=== PATIENT | male | born 1985 | race Caucasian/White ===

== ENCOUNTER 2022-04-27 18:50 | Emergency (ER) | payer BC, SELFPAY ==
[2022-04-27] VITALS (8 sets, daily range): BP systolic 140–153; BP diastolic 84–99; PULSE 77–92; RESP 16–18; TEMP 37; O2SAT 93–100; BMI 33.5
[2022-04-27 21:13] LABS: Hemoglobin* 16.3 gm/dL (13.5-17.5)
[2022-04-27 21:16] LABS: Chloride* 107 mmol/L (96-114); Potassium* 3.9 mmol/L (3.6-5.1); Sodium* 140 mmol/L (135-149)
[2022-04-27 21:19] LABS: Blood Urea Nitrogen* 16 mg/dL (5-24); Calcium* 9.5 mg/dL (8.4-10.6); Carbon Dioxide* 26 mmol/L (20-32); Est. Creatinine Clearance* 121.76; Estimated Glomerular Filt Rate 98 ml/min; Glucose* 103 mg/dL (60-115); Magnesium* 2.2 mg/dL (1.5-2.6)
[2022-04-27 21:28] LABS: NT Pro B Type NatriureticPept* < 20 pg/mL
--- NOTE | 2022-04-28 07:20 | ED_ITS ---
HPI - Chest Pain General Chief Complaint: Chest Pain Stated Complaint: Irregular heart beat and chest pain Time Seen by Provider: 04/27/22 20:04 History of Present Illness HPI narrative: 37-year-old man here with significant other with concern of heart skipping beats and some heavy beats. Just feels like things are not right. Admittedly has been going on and off for some years but seems more noticeable or frequent over the last week and especially this last day; lasting momentarily as often as every 5 minutes. He has had episodes where lying down at the end of the day feels more of the symptoms, more fluttering? perhaps. Does work road construction. He feels like he's been subtly more short of breath lately. Admittedly may not keep up with hydration. He does experience more of these feelings generally later in the day. Over the course of the day had a few sharp pains as well and so is more concerned about his heart. He does endorse that his anxiety is elevated. Concerned also about blood pressure as meaasured here. No family history of arrhythmia/dysrhythmia, sudden cardiac , no hypertrophic cardiomyopathy. No alcohol. Does not consume excessive stimulants. No fever. No cough or cold symptoms. No pleuritic pain. Does smoke. Does not feel these sympoms under heavier exertion. Related Data Home Medications Medication Instructions Recorded Confirmed No Known Home Medications 04/27/22 04/27/22 Allergies Allergy/AdvReac Type Severity Reaction Status Date / Time No Known Drug Allergies Allergy Verified 04/27/22 19:04 Review of Systems Status of ROS Reports: 10 or more systems reviewed and unremarkable except as noted in History and below PFSH PFS Social History Smoking Status: Current every day smoker What tobacco products do you use: cigarettes Smoking packs per day: 0.5 Smoking cigarettes per day: 10.0 Do you use any of these nicotine containing products: None Second hand tobacco smoke exposure: No How often do you have a drink containing alcohol: monthly or less How many standard drinks containing alcohol do you have on a typical day: 1 or 2 How often do you have six or more drinks on one occasion: Never AUDIT-C Alcohol total score: 1 Non-prescribed substance use: denies use service: No Exam Narrative Exam Narrative: Pleasant man of large stature. NAD. Generally calm but appears subtly anxious. Speaking in steady controlled fluid manner. Breathing easily. Skin warm and dry without rash. Extensive tattooing of viking/nordic/runes. CN 2 through 12 look to be intact. Heavily bearded. Lungs are clear. Heart with regular rate and rhythm. No murmur rub or gallop. Abdomen soft. Well-muscled. Moving all extremities without difficulty. Well-perfused. No lower extremity edema. Const Vital Signs, click to edit/add: Vital Signs - 24 hr 04/27/22 19:00 04/27/22 19:46 04/27/22 19:46 Temperature 98.6 F Pulse Rate 84 Pulse Rate [Right Pulse Oximeter] 85 87 Respiratory Rate 18 18 Blood Pressure Blood Pressure [Right Upper Arm] 152/92 H 146/92 H Pulse Oximetry 97 96 94 Oxygen Delivery Method Room Air Room Air 04/27/22 20:00 04/27/22 20:02 04/27/22 20:30 Temperature Pulse Rate 92 81 77 Pulse Rate [Right Pulse Oximeter] Respiratory Rate Blood Pressure 153/99 H Blood Pressure [Right Upper Arm] Pulse Oximetry 93 94 96 Oxygen Delivery Method 04/27/22 20:32 04/27/22 22:04 04/27/22 22:27 Temperature 98.6 F Pulse Rate 79 Pulse Rate [Right Pulse Oximeter] 78 78 Respiratory Rate 16 16 Blood Pressure 144/84 H Blood Pressure [Right Upper Arm] 140/95 H 140/95 H Pulse Oximetry 94 100 Oxygen Delivery Method Room Air Course Vital Signs Vital signs: Initial Vital Signs Temperature 98.6 F 04/27/22 19:00 Temperature Source Temporal Artery Scan 04/27/22 19:00 Pulse Rate 85 04/27/22 19:00 Respiratory Rate 18 04/27/22 19:00 Blood Pressure 152/92 H 04/27/22 19:00 Blood Pressure Mean 112 04/27/22 19:00 Blood Pressure Position Sitting 04/27/22 19:00 Pulse Oximetry 97 04/27/22 19:00 Oxygen Delivery Method 04/27/22 19:00 Vital Signs Temperature 98.6 F 04/27/22 19:00 Pulse Rate 85 04/27/22 19:00 Respiratory Rate 18 04/27/22 19:00 Blood Pressure 152/92 H 04/27/22 19:00 Pulse Oximetry 97 04/27/22 19:00 Oxygen Delivery Method 04/27/22 19:00 Temperature 98.6 F 04/27/22 22:27 Pulse Rate 78 04/27/22 22:27 Respiratory Rate 16 04/27/22 22:27 Blood Pressure 140/95 H 04/27/22 22:27 Pulse Oximetry 100 04/27/22 22:04 Oxygen Delivery Method 04/27/22 22:04 MDM - Chest Pain MDM Narrative Medical decision making narrative: During initial evaluation I do see PACs on monitor; not clearly symptomatic with these. Perhaps dehydration is contributing to some cellular irritability. May have some underlying arrhythmia. Monitored in the emergency department without further event. Did give IV hydration and checked chemistries. Cardiac labs and chemistries were reassuring. Due to concern particularly about more lengthy events around bedtime, perhaps there is more that might be captured on longer monitoring and so have arranged for Holter monitor to be placed as well. I had also discussed just following up outpatient. I do think anxiety has perpetuated or possibly precipitated some of the symptoms as well. Lab Data Attestation: I reviewed the patient's lab results. Labs: Lab Results 04/27/22 04/27/22 04/27/22 Range/Units 19:41 19:41 19:41 Hgb 16.3 (13.5-17.5) gm/dL Sodium 140 (135-149) mmol/L Potassium 3.9 (3.6-5.1) mmol/L Chloride 107 (96-114) mmol/L Carbon Dioxide 26 (20-32) mmol/L BUN 16 (5-24) mg/dL Creatinine 1.0 (0.5-1.5) mg/dL Estimated Creat Clear 121.76 Estimated GFR 98 ml/min Glucose 103 (60-115) mg/dL Calcium 9.5 (8.4-10.6) mg/dL Magnesium 2.2 (1.5-2.6) mg/dL NT-Pro-B Natriuret Pep < 20 pg/mL TSH (0.270-4.20) uIU/mL POC Troponin I (0.01-0.04) ng/ml 04/27/22 04/27/22 Range/Units 19:41 21:51 Hgb (13.5-17.5) gm/dL Sodium (135-149) mmol/L Potassium (3.6-5.1) mmol/L Chloride (96-114) mmol/L Carbon Dioxide (20-32) mmol/L BUN (5-24) mg/dL Creatinine (0.5-1.5) mg/dL Estimated Creat Clear Estimated GFR ml/min Glucose (60-115) mg/dL Calcium (8.4-10.6) mg/dL Magnesium (1.5-2.6) mg/dL NT-Pro-B Natriuret Pep pg/mL TSH 1.820 (0.270-4.20) uIU/mL POC Troponin I 0.00 L (0.01-0.04) ng/ml ECG Data Attestation: I personally reviewed and interpreted this ECG as follows: (Normal sinus at 86) Discharge Plan Discharge Clinical Impression: Heart palpitations, Anxiety Patient Disposition: Home w/ Parent or Adult Condition: Stable Additional Instructions: As discussed, I would focus on hydration as this seems to decrease cellular irri tability. I do not see any reason for you to restrain your activity level at this point. In fact a little heart pumping exercise daily does every body good. Return for increasing persistent chest pain, especially if associated with shortness of breath, associated lightheadedness. Return Holter monitor as scheduled and follow up results probably about 2 weeks later in primary care. In anticipation of that visit you might check your blood pressures every other day after period of rest over 7-10 days. Prescriptions: No Action No Known Home Medications Follow Up/Referrals: Provider,Not a Local [Primary Care Provider] - Stand Alone Forms: [employer] Info Instructions
== END 2022-04-27 22:27 | disposition home or self-care (01) ==
PROVIDERS: Emergency Provider Family Medicine
DX: R00.2 Palpitations (principal); F41.9 Anxiety disorder, unspecified
CPT/HCPCS: 36415; 80048; 83735; 83880; 84443; 84484; 85018; 93225; 93226; 99284

== ENCOUNTER 2023-11-30 09:01 | Outpatient (CLI) | payer BC, SELFPAY ==
--- OUTSIDE RECORDS SUMMARY | 2023-11-30 09:04 | XMS_ITS ---
Author Organization [facility] Address [facility] [address] [place] [address] Care Team Providers Care Electronic Warfare Linguist Name Role Phone Unavailable Unavailable Unavailable Surgery Details Not on file Complications Check Surgery Details section. Procedure Estimated Blood Loss Check Surgery Details section. Procedure Findings Check Surgery Details section. Procedure Specimens Taken Check Surgery Details section.
--- OUTSIDE RECORDS SUMMARY | 2023-11-30 09:04 | XMS_ITS | Clinical Summary ---
Author Organization [facility] Address [address] [place] [id number] Care Team Providers Care Cafe Server Name Role Phone Elsewhere, Pcp Primary Care Provider Unavailabl e Source Comments Patient records contain information from all sites at [facility]. For routine questions regarding patient records, call [phone] during business hours, M-F 8:00 AM - 5:00 PM Central Time. Record requests for emergency care only can be directed to [phone] at any time.[facility] Allergies Active Allergy Reactions Criticality Noted Date Comments Citalopram GI intolerance 05/06/2020 Nausea, vomiting, shortness of breath, chest pain, others Oxycodone Shortness of breath (Reselect Reaction) 08/15/2021 Medications Medication Sig Dispensed Refills Start Date End Date Status acetaminophen (TYLENOL) 325 mg tablet Take 650 mg by mouth. 08/12/2021 Active ibuprofen (ADVIL,MOTRIN) 600 mg tablet Take 1 tablet by mouth every 6 (six) hours as needed. 08/17/2021 Active omeprazole (PriLOSEC) [address] capsule Take 20 mg by mouth. 06/07/2020 Active Active Problems Problem Noted Date Diagnosed Date Gastroesophageal Reflux Disease NOS 12/24/2021 Hypertension 12/24/2021 Anxiety 05/03/2020 Social History Tobacco Use Types Packs/Day Years Used Date Smoking Tobacco: Never Smokeless Tobacco: Never Tobacco Cessation:Counseling Given: Not Answered Nutrition Answer Date Recorded Nutrition: EVOO Fat Source Unknown 12/08 Nutrition: Servings of Fruits/Vegetables per Day Not on file 12/08/2021 Dental Answer Date Recorded Dental: Regular Dentist Unknown 12/09/19 Sex and Gender Information Value Date Recorded Sex Assigned at Not on file Gender Identity Not on file Sexual Orientation Not on file Last Filed Vital Signs Vital Sign Reading Time Taken Comments Blood Pressure 140/89 12/24/2021 10:54 AM CDT Pulse 94 12/24/2021 10:54 AM CDT Temperature 36.9 ??C (98.4 ??F) 12/24/2021 10:54 AM C DT Respiratory Rate 18 12/08/2021 7:04 AM CDT Oxygen Saturation 98% 12/24/2021 10:54 AM CDT Inhaled Oxygen Concentration - - Weight 126 kg (276 lb 14.4 oz) 12/24/2021 10:54 AM CDT Height - - Body Mass Index - - Plan of Treatment Health Maintenance Due Date Last Done Comments HIV Screening 1983 Hepatitis C Screening 1983 Lipid (Cholesterol) Screening 1983 Hepatitis B Vaccines (1 of 3 - 19+ 3-dose series) 2002 DTaP,Tdap,and Td Vaccines (2 - Tdap) 05/29/2015 05/29/2005 Office Visit for Blood Press ure Check / Re-check 03/25/2022 12/24/2021 COVID-19 Vaccine (1 - 2022-2 4 season) 2022 Depression Screening (Annual PHQ-2) 04/19/2023 Influenza Vaccine (#1) 2024 HPV Vaccines Aged Out No longer eligi ble based on patient's age to complete this topic Pneumococcal vaccine (0-64 years) Aged Out No longer eligible based on patient's age to complete this topic Care Teams Cafe Server Relationship Specialty Start Date End Date Elsewhere, Pcp PCP - General Internal Medicine 12/08/21
--- OUTSIDE RECORDS SUMMARY | 2023-11-30 09:04 | XMS_ITS | Referral Summary ---
Author Organization [facility] Address [address] [place] [id number] Care Team Providers Care Pump Servicer Name Role Phone Elsewhere, Pcp Primary Care Provider Unavailabl e Source Comments Patient records contain information from all sites at [facility]. For routine questions regarding patient records, call [phone] during business hours, M-F 8:00 AM - 5:00 PM Central Time. Record requests for emergency care only can be directed to [phone] at any time.[facility] Allergies Active Allergy Reactions Criticality Noted Date [...] Mass Index - - Plan of Treatment Not on file Care Teams Pump Servicer Relationship Specialty Start Date End Date Elsewhere, Pcp PCP - General Internal Medicine 12/08/21
--- OUTSIDE RECORDS SUMMARY | 2023-11-30 09:05 | XMS_ITS | Referral Summary ---
Author Organization [facility] Address [address] [facility] [place] [address] Care Team Providers Care Curator Of Education Name Role Phone Sohail Milton MD Unavailable + [phone] Allergies Active Allergy Reactions Criticality Noted Date Comments Citalopram Other (See Comments) 05/06/2020 Nausea, vomiting, shortness of breath, chest pain, others Medications Medication Sig Dispensed Refills Start Date End Date Status omeprazole (PRILOSEC) [address] capsule TAKE 1 CAPSULE BY MOUTH EVERY DAY BEFORE A MEAL 07/20/2020 Active omeprazole (PRILOSEC) [address] capsule Take 20 mg by mouth 06/07/2020 Active omeprazole (PRILOSEC) [address] capsule Take 40 mg by mouth 08/16/2020 Active Social History Tobacco Use Types Packs/Day Years Used Date Smoking Tobacco: Every Day PHQ-2 Answer Date Recorded PHQ-2 Score 0 05/19/2021 Adolescent Education Answer Date Record ed Getting School Help Needed Not on file 01/17 Sex and Gender Information Value Date Recorded Sex Assigned at Not on file Gender Identity Not on file Sexual Orientation Not on file Last Filed Vital Signs Vital Sign Reading Time Taken Comments Blood Pressure 149/90 05/23/2007 7:00 PM SUPERINTENDENT MEASUREMENT Pulse 108 05/23/2007 7:00 PM SUPERINTENDENT MEASUREMENT Temperature 37.7 ??C (99.9 ??F) 05/23/2007 7:00 PM CS T Respiratory Rate - - Oxygen Saturation - - Inhaled Oxygen Concentration - - Weight 124.7 kg (275 lb) 05/19/2021 8:01 AM SUPERINTENDENT MEASUREMENT Height 193 cm (6' 4) 05/19/2021 8:01 AM SUPERINTENDENT MEASUREMENT Body Mass Index 33.47 05/19/2021 8:01 AM SUPERINTENDENT MEASUREMENT Plan of Treatment Not on file Care Teams Curator Of Education Relationship Specialty Start Date End Date Sohail Milton MD Orthopaedic Surgery 05/13/21
--- OUTSIDE RECORDS SUMMARY | 2023-11-30 09:05 | XMS_ITS | Encounter Summary ---
Author Organization [facility] Address [address] [facility] [address] Care Team Providers Care Camp Manager Name Role Phone Sohail Milton MD Unavailable + [phone] [facility], [facility] Primary Care Pr ovider Unavailable Crow Leija MD Unavailable [phone] Reason for Visit * Reason Onset Date Comments *-*INCOMING RECORDS*-* 05/19/2021 Encounter Details Date Type Department Care Team (Late st Contact Info) Description 05/19/2021 PRE VISIT [facility] [address] [place] [address] Crwo Leija MD [address] [place] [address] *-*INCOMING RECORDS*-* Social History Tobacco Use Types Packs/Day Years Used Date Smoking Tobacco: Every Day PHQ-2 Answer Date Recorded PHQ-2 Score 0 05/19/2021 Sex and Gender Information Value Date Recorded Sex Assigned at Not on file Gender Identity Not on file Sexual Orientation Not on file COVID-19 Exposure Response Date Recorded In the last month, have you been in contact with someone who was confirmed or suspected to have Coronavirus / COVID-19? No / Unsure 05/19/2021 7:46 AM CLAIMS CUSTOMER SERVICE REPRESENTATIVE documented as of this encounter Miscellaneous Notes * Telephone Encounter - Carlee Erickson CMA - 05/09/2021 12:49 PM CST RECORDS RECEIVED FROM: benign growth on (L) humerus / Dr. Sohail Milton / [employer] / MRI / no surgery DATE RECEIVED: May 19, 2021 NOTES STATUS DETAILS OFFICE NOTE from referring provider Care Everywhere Sohail Milton MD?? MEDICATION LIST Internal MRI In process-R 05/13/21 9:36 AM IMAGES RESOLVED Carlee Hernandez CMA 05/09/21 12:56 PM FAXED REQUEST TO ANA Hernandez CMA MS CUSTOMER SERVICE REPRESENTATIVE documented in this encounter Plan of Treatment Not on file documented as of this encounter Visit Diagnoses Not on filedocumented in this encounter Care Teams Camp Manager Relationship Specialty Start Date End Date Clinic, [facility] PCP - General 05/19/21 07/24/22 Sohail Milton MD Orthopaedic Surgery 05/13/21 Crow Leija MD [facility] [address] [address] Assigned Musculoskeletal Provider 05/25/21 11/20/22 documented as of this encounter
--- OUTSIDE RECORDS SUMMARY | 2023-11-30 09:05 | XMS_ITS | Clinical Summary ---
Author Organization [employer] [facility] Address [place], [place] [address] Care Team Providers Care Utility Tech Name Role Phone Pcp, No Primary Care Provider Unavailabl e Allergies Active Allergy Reactions Criticality Noted Date Comments Citalopram Other - Describe In Comment Field 05/06/2020 Nausea, vomiting, shortness of breath, chest pain, others Oxycodone Shortness Of Breath 08/15/2021 Medications Medication Sig Dispensed Refills Start Date End Date Status miscellaneous medical supply miscIndications:Righ t leg swelling,Varicose veins of both lower extremities with pain As directed. 1 pair of elastic compression stockings, 20-25 mm HG, knee high 1 Each 06/07/2020 Active naproxen (NAPROSYN) 500 mg tabletIndications:Sc iatica, right side Take 1 Tablet (500 mg) by mouth two times daily. 14 Tablet 06/14/2023 Active methylPREDNISolone (MEDROL DOSEPAK) 4 mg tabletIndications:St rain of lumbar region, subsequent encounter Take by mouth as instructed per packaging: take all tablets together with breakfast. 21 Tablet 10/18/2023 Active tiZANidine (ZANAFLEX) 4 mg tabletIndications:St rain of lumbar region, subsequent encounter Take 1 Tablet (4 mg) by mouth every 6 hours if needed for Muscle Spasm. 10 Tablet 10/18/2023 Active celecoxib (CELEBREX) 200 mg capsuleIndications:L umbar radiculopathy Take 1 Capsule (200 mg) by mouth two times daily with meals. 60 Capsule 2 11/01/2023 Active Active Problems Problem Noted Date Diagnosed Date Anxiety 05/03/2020 Hypertension GERD (gastroesophageal reflux disease) Resolved Problems Problem Noted Date Diagnosed Date Resolved Date Strain of left supraspinatus muscle 05/08/2021 07/16/2021 Encounters Date Type Department Care Team Description 11/12/2023 Telephone [place] [address] [facility] [place] [address] Jerry Dumont MD Results (MRI results) 11/08/2023 7:15 AM CDT Ancillary Procedure [address] [place] [address] 11/08/2023 Travel 11/01/2023 3:00 PM CDT Ancillary Procedure [address] [place] [address] 11/01/2023 2:00 PM CDT Office Visit [address] [place] [address] Jerry Dumont MD Musculoskeletal Problem (Consult low back pain, per Kinjal NICOLE) 11/01/2023 Travel 10/19/[address] [address] Kinjal Macario PA Letter 10/18/2023 1:15 PM CDT Office Visit [address] [address] Kinjal Macario PA Back Pain (Lower R back pain - decreased ROM - taking Ibuprofen) 10/18/[address] [address] Jerry Dumont MD Appointment Request 10/18/2023 Travel from Last 3 Months Immunizations Name Administration Dates Next Due DTaP 05/29/2005 Family History Medical History Relation Name Comments No Known Problems Father No Known Problems Mother Relation Name Status Comments Father Mother Social History Tobacco Use Types Packs/Day Years Used Date Smoking Tobacco: Former Cigarettes 0.3 15 2 - 2017 Smokeless Tobacco: Former Tobacco Cessation:Counseling Given: Yes Alcohol Use Standard Drinks/Week Comments No 0 (1 standard drink = 0.6 oz pur e alcohol) PHQ-2 Answer Date Recorded PHQ-2 TOTAL SCORE 0 06/18/2021 Social Connections Answer Date Recorded Frequency of Communication with Friends and Fami ly 0 05/14/2023 Financial Resource Strain Answer Date R ecorded Difficulty of Paying Living Expenses 3 05/14/2023 Difficulty of Paying Living Expenses Not on file 05/14/2023 Food Insecurity Answer Date Recorded Worried About Running Out of Food in the Last Ye ar 1 05/14/2023 Transportation Needs Answer Date Record ed Lack of Transportation (Medical) 1 05/14/2023 Housing Stability Answer Date Recorded Unable to Pay for Housing in the Last Year 1 05/14/2023 Sex and Gender Information Value Date Recorded Sex Assigned at Not on file Gender Identity Not on file Sexual Orientation Not on file Obstetrics History Last Filed Vital Signs Vital Sign Reading Time Taken Comments Blood Pressure 153/92 11/01/2023 2:07 PM CDT Pulse 92 11/01/2023 2:07 PM CDT Temperature 36.4 ??C (97.6 ??F) 11/01/2023 2:07 PM CD T Respiratory Rate 18 08/12/2021 8:00 PM CDT Oxygen Saturation 99% 11/01/2023 2:07 PM CDT Inhaled Oxygen Concentration - - Weight 129 kg (284 lb 6.4 oz) 11/01/2023 2:07 PM CDT shoes on Height 192.4 cm (6' 3.75) 05/06/2023 8:21 AM CS T Body Mass Index 34.85 05/06/2023 8:21 AM DIRECTOR OF INTELLIGENCE Plan of Treatment Upcoming Encounters Date Type Department Care Team (Late st Contact Info) Description 11/30/2023 9:40 AM CDT Office Visit [facility] [address] [place] [address] Jerry Dumont MD [address] [place] [address] Arrived 01/19/2024 9:40 AM CDT Office Visit [facility] [address] [place] [address] Jerry Dumont MD [address] [place] [address] Health Maintenance Due Date Last Done Comments Tdap 1994 HIV for age 15-65 1998 Hepatitis C screening for age 18-79 2001 Tetanus booster 2003 Depression screening for age 12+ 06/18/2022 06/18/2021, 05/06/2020, 05/04/2020, Additional history exists COVID-19 vaccine series (2022-24 season) 2022 Influenza for age 9-49 12/19/2023 BMI (ht and wt on same day) for age 18+ 05/06/2024 05/06/2023, 07/31/2021, 06/18/2021, Additional history exists Lipids for age 35-44 05/14/2028 05/14/2023 Pneumococcal series for age 6-64 Aged Out No longer eligible based on patient's age to complete this topic Procedures Procedure Name Priority Date/Time Associated Diagnosis Comments AMB EPIDURAL STEROID INJECTION Routine 11/30/2023 7:57 AM CDT Lumbar radiculopathy Strain of lumbar region, subsequent encounter DDD (degenerative disc disease), lumbar MR SPINE LUMBAR WO Routine 11/08/2023 7: 35 AM CDT Strain of lumbar region, subsequent encounter Lumbar radiculopathy XR SPINE LUMBAR 2 VIEWS Routine 11/01/2023 2:59 PM CDT Strain of lumbar region, subsequent encounter Lumbar radiculopathy LIPID PANEL W REFLEX MEASURED LDL Routine 05/14/2023 11:05 AM DIRECTOR OF INTELLIGENCE Lipid screening from Last 3 Months or Most Recently Relevant to Health Maintenance Results * MR SPINE LUMBAR WO (11/08/2023 7:35 AM CDT) Anatomical Region Laterality Modality Spine, LUMBAR SPINE Magnetic Res onance 11/08/2023 11:2 2 AM CDT Impressions 11/08/2023 11:22 AM CDT 1. Normal alignment. No fractures. 2. Mild marrow edema of the articular processes of the bilateral L4-5 facet joints which may be secondary to stress reaction or mild inflammation 3. As described, focal low T1-T2 signal intensity lesions of the L2 and L3 vertebral body may represent atypical hemangiomas. No aggressive features. Consider interval follow-up with CT for further evaluation. 4. Lumbar spondylosis 5. At L3-4, right paracentral and subarticular disc protrusion. Mild narrowing of the spinal canal. Potential impingement of the traversing right L4 nerve root 6. At L4-5, right paracentral disc protrusion. Moderate to severe narrowing of the spinal canal. Impingement of the traversing right L5 nerve root. Mild narrowing of the right neural foramen Dictated by Guillermo Harry MD @ 11/08/2023 11:22:02 AM (Electronically Signed) Narrative 11/08/2023 11:22 AM CDT For Patients: ??As a result of the Cures Act, medical imaging exams and procedure reports are released immediately into your electronic medical record. ??You may view this report before your referring provider. ??If you have questions, please contact your health care provider. INDICATION: Lumbar radiculopathy. COMPARISON: None. TECHNIQUE: Sagittal T1, T2, and STIR sequences. Axial T1 and T2 weighted sequences. FINDINGS: Normal vertebral body alignment. No fractures. No vertebral body loss of height. No spondylosis. No evidence injury. Lumbar spondylosis with multilevel disc degeneration facet arthropathy. Mild marrow edema of the articular processes of the bilateral L4-5 facet joints which may be secondary to stress reaction or mild inflammation facet arthritis. Focal low T1 and T2 signal intensity lesions of the L2 and L3 vertebral bodies but with no increased signal intensity on STIR imaging. Subtle internal striations better appreciated axial imaging. Finding right represent atypical hemangiomas. Multilevel small Schmorl`s nodes. T12-L1 L1-2: No spinal canal or neural foraminal narrowing. L2-3: Posterior disc bulge. Mild narrowing of spinal canal. No neural foraminal narrowing. L3-4: Disc degeneration. Diffuse disc bulge. Right paracentral subarticular disc protrusion measures approximately 3 mm in short axis. Mild narrowing of spinal canal. Right subarticular recess narrowing potential impingement of the traversing right L4 nerve root. No neural foraminal narrowing. Mild facet arthropathy. L4-5: Disc degeneration. Diffuse disc bulge. Right paracentral disc protrusion measures approximately 4 mm short axis. Moderate severe narrowing of spinal canal. Impingement of the traversing right L5 nerve root. Mild narrowing of the right neural foramen. No narrowing of the left neural foramen. L5-S1: Posterior disc bulge. No narrowing of spinal canal. No impingement of the traversing S1 nerve roots. No neural foraminal narrowing. Degenerative changes of the SI joints. No retroperitoneal adenopathy. Procedure Note Guillermo Harry MD, PhD - 11/08/2023 For Patients: As a result of the Cures Act, medical imagingexams and procedure reports are released immediately into your electronicmedical record. You may view this report before your referring provider.If you have questions, please contact your health care provider. INDICATION: Lumbar radiculopathy. COMPARISON: None. TECHNIQUE: Sagittal T1, T2, and STIR sequences. Axial T1 and T2 weighted sequences. FINDINGS: Normal vertebral body alignment. No fractures. No vertebral body loss ofheight. No spondylosis. No evidence injury. Lumbar spondylosis withmultilevel disc degeneration facet arthropathy. Mild marrow edema of the articular processes of the bilateral L4-5 facetjoints which may be secondary to stress reaction or mild inflammationfacet arthritis. Focal low T1 and T2 signal intensity lesions of the L2 and L3 vertebralbodies but with no increased signal intensity on STIR imaging. Subtleinternal striations better appreciated axial imaging. Finding rightrepresent atypical hemangiomas. Multilevel small Schmorl`s nodes. T12-L1 L1-2: No spinal canal or neural foraminal narrowing. L2-3: Posterior disc bulge. Mild narrowing of spinal canal. No neuralforaminal narrowing. L3-4: Disc degeneration. Diffuse disc bulge. Right paracentralsubarticular disc protrusion measures approximately 3 mm in short axis.Mild narrowing of spinal canal. Right subarticular recess narrowingpotential impingement of the traversing right L4 nerve root. No neuralforaminal narrowing. Mild facet arthropathy. L4-5: Disc degeneration. Diffuse disc bulge. Right paracentral discprotrusion measures approximately 4 mm short axis. Moderate severenarrowing of spinal canal. Impingement of the traversing right L5 nerveroot. Mild narrowing of the right neural foramen. No narrowing of the leftneural foramen. L5-S1: Posterior disc bulge. No narrowing of spinal canal. No impingementof the traversing S1 nerve roots. No neural foraminal narrowing. Degenerative changes of the SI joints. No retroperitoneal adenopathy. IMPRESSION: 1. Normal alignment. No fractures. 2. Mild marrow edema of the articular processes of the bilateral L4-5facet joints which may be secondary to stress reaction or mildinflammation 3. As described, focal low T1-T2 signal intensity lesions of the L2 and [id number] body may represent atypical hemangiomas. No aggressive features.Consider interval follow-up with CT for further evaluation. 4. Lumbar spondylosis 5. At L3-4, right paracentral and subarticular disc protrusion. Mildnarrowing of the spinal canal. Potential impingement of the traversingright L4 nerve root 6. At L4-5, right paracentral disc protrusion. Moderate to severenarrowing of the spinal canal. Impingement of the traversing right S3fmwzw root. Mild narrowing of the right neural foramen Dictated by Guillermo Harry MD @ 11/08/2023 11:22:02 AM (Electronically Signed) Jerry Dumont MD MR * XR SPINE LUMBAR 2 VIEWS (11/01/2023 2:59 PM CDT) Anatomical Region Laterality Modality LUMBAR SPINE Computed Radiogr aphy 11/04/2023 6:16 AM CDT Impressions 11/04/2023 6:16 AM CDT Mild multilevel degenerative spurring, particularly on the left at L2-3. Dictated by Sundar Deras MD @ 11/04/2023 6:16:57 AM (Electronically Signed) Narrative 11/04/2023 6:16 AM CDT For Patients: ??As a result of the s Act, medical imaging exams and procedure reports are released immediately into your electronic medical record. ??You may view this report before your referring provider. ??If you have questions, please contact your health care provider. INDICATION: Lumbar strain TECHNIQUE: 2-view lumbar spine. COMPARISON: none FINDINGS: No lumbar vertebral body compression fracture. Mild multilevel disc space narrowing and spurring. No spondylolisthesis. SI joints normal. Bone island in the acetabulum. No paraspinal lesion. Procedure Note Sundar Deras MD - 11/04/2023 For Patients: As a result of the s Act, medical imagingexams and procedure reports are released immediately into your electronicmedical record. You may view this report before your referring provider.If you have questions, please contact your health care provider. INDICATION: Lumbar strain TECHNIQUE: 2-view lumbar spine. COMPARISON: none FINDINGS: No lumbar vertebral body compression fracture. Mild multilevel disc spacenarrowing and spurring. No spondylolisthesis. SI joints normal. Boneisland in the acetabulum. No paraspinal lesion. IMPRESSION: Mild multilevel degenerative spurring, particularly on the left at L2-3. Dictated by Sundar Deras MD @ 11/04/2023 6:16:57 AM (Electronically Signed) Jerry Dumont MD GENERAL IMAGING * (ABNORMAL) LIPID PANEL W REFLEX MEASURED LDL (05/14/2023 11:05 AM DIRECTOR OF INTELLIGENCE) CHOLESTEROL,TOTAL 190 100 - 199 mg/dL 05/14/2023 10:34 PM [facility] Comment: Cholesterol, Total Reference Ranges Desirable <200 mg/dL Borderline 200-239 mg/dL High >=240 mg/dL TRIGLYCERIDES 131 <150 mg/dL 05/14/2023 10:34 PM [facility] HDL CHOLESTEROL 25(L) >40 mg/dL 10:34 PM [facility] NON-HDL CHOLESTEROL 165(H) <145 mg/dl 05/14/2023 10:34 PM [facility] CHOL/HDL RATIO 7.60(H) <4.50 05/14/2023 10:34 PM [facility] LDL CHOLESTEROL 139(H) <=130 mg/dL 05/14/2023 10:34 PM [facility] VLDL CHOLESTEROL 26 <=30 mg/dL 05/14/2023 10:34 PM [facility] PROVIDER ORDERED STATUS RANDOM 05/14/2023 10:34 PM [facility] Blood BLOOD SPECIMEN / Unknown Venipuncture / Unknown 05/14/2023 11:05 AM DIRECTOR OF INTELLIGENCE 05/14/2023 11:06 AM DIRECTOR OF INTELLIGENCE Jo Xavier MD CHEMISTRY [employer] [address] [place] [address], from Last 3 Months or Most Recently Relevant to Health Maintenance Advance Directives * Full Code (Latest Code Status on File) Date Activated Date Inactivated Comments 08/12/2021 3:38 PM 08/12/2021 10:15 PM Question Answer Comments Code Status Discussion: Reviewed Preferences Care Teams Utility Tech Relationship Specialty Start Date End Date Pcp, No . PCP - General 10/18/23
--- OUTSIDE RECORDS SUMMARY | 2023-11-30 09:05 | XMS_ITS | Clinical Summary ---
Author Organization [place] Address [address] [facility] [place] [address] Care Team Providers Care Regulatory Scientist Name Role Phone Sohail Milton MD Unavailable + [phone] Allergies Active Allergy Reactions Criticality Noted Date [...] Comments Blood Pressure 149/90 05/23/2007 7:00 PM POLE CLIMBER Pulse 108 05/23/2007 7:00 PM POLE CLIMBER Temperature 37.7 ??C (99.9 ??F) 05/23/2007 7:00 PM CS T Respiratory Rate - - Oxygen Saturation - - Inhaled Oxygen Concentration - - Weight 124.7 kg (275 lb) 05/19/2021 8:01 AM POLE CLIMBER Height 193 cm (6' 4) 05/19/2021 8:01 AM POLE CLIMBER Body Mass Index 33.47 05/19/2021 8:01 AM POLE CLIMBER Plan of Treatment Health Maintenance Due Date Last Done Comments ADVANCE CARE PLANNING 1983 ANNUAL REVIEW OF HM ORDERS 1983 GLUCOSE 1983 YEARLY PREVENTIVE VISIT 1983 Pneumococcal Vaccine: Pediat rics (0 to 5 Years) and At-Risk Patients (6 to 64 Years) (1 of 2 - PCV) 1989 HIV SCREENING 1998 HEPATITIS C SCREENING 2001 HEPATITIS B IMMUNIZATION (1 of 3 - 19+ 3-dose series) 2002 DTAP/TDAP/TD IMMUNIZATION (2 - Tdap) 05/29/2015 05/29/2005 COVID-19 Vaccine (1 - 2022-2 4 season) 2022 LIPID 2023 PHQ-2 (once per calendar year) 2023 05/19/2021 INFLUENZA VACCINE (#1) 2023 HPV IMMUNIZATION Aged Out No longer e ligible based on patient's age to complete this topic IPV IMMUNIZATION Aged Out No longer e ligible based on patient's age to complete this topic MENINGITIS IMMUNIZATION Aged Out No l onger eligible based on patient's age to complete this topic RSV MONOCLONAL ANTIBODY Aged Out No l onger eligible based on patient's age to complete this topic Care Teams Regulatory Scientist Relationship Specialty Start Date End Date Sohail Milton MD Orthopaedic Surgery 05/13/21
== END 2023-11-30 09:02 | disposition home or self-care (01) ==
LOC: INJ CL 09:03
PROVIDERS: Visit Provider Family Medicine
DX: M54.16 Radiculopathy, lumbar region (principal); M51.36 Other intervertebral disc degeneration, lumbar region
CPT/HCPCS: 62323; J0702; Q9966

== ENCOUNTER 2024-06-30 09:59 | Outpatient (CLI) | payer BC, SELFPAY | END 2024-06-30 10:00 | disposition home or self-care (01) | LOC: INJ CL 10:00 | PROVIDERS: PCP Family Medicine; Visit Provider Family Medicine | DX: M54.16 Radiculopathy, lumbar region (principal); M51.369 Other intervertebral disc degeneration, lumbar region without mention of lumbar back pain or lower extremity pain | CPT/HCPCS: 62323; J0702; Q9966 ==

== ENCOUNTER 2024-07-18 08:22 | Emergency (ER) | payer BC, SELFPAY ==
--- OUTSIDE RECORDS SUMMARY | 2024-07-18 08:24 | XMS_ITS | Clinical Summary ---
Author Organization [facility] Address [address] [place] [id number] Care Team Providers Care Casino Supervisor Name Role Phone Pcp, No Primary Care Provider Unavailabl e Allergies Active Allergy Reactions Criticality Noted Date Comments Citalopram Other - Describe In Comment Field 05/06/2020 Nausea, vomiting, shortness of breath, chest pain, others Oxycodone Shortness Of Breath 08/15/2021 Medications miscellaneous medical supply miscIndications:R ight leg swelling,Varicose veins of both lower extremities with pain As directed. 1 pair of elastic compression stockings, 20-25 mm HG, knee high 1 Each 06/07/19 21 025 Discontin ued(*Judith ent states no longer taking) naproxen (NAPROSYN) 500 mg tabletIndications :Sciatica, right side Take 1 Tablet (500 mg) by mouth two times daily. 14 Tablet 06/14/19 24 025 Discontin ued(*Judith ent states no longer taking) methylPREDNISolon e (MEDROL DOSEPAK) 4 mg tabletIndications :Strain of lumbar region, subsequent encounter Take by mouth as instructed per packaging: take all tablets together with breakfast. 21 Tablet 10/18/19 24 025 Discontin ued(*Judith ent states no longer taking) tiZANidine (ZANAFLEX) 4 mg tabletIndications :Strain of lumbar region, subsequent encounter Take 1 Tablet (4 mg) by mouth every 6 hours if needed for Muscle Spasm. 10 Tablet 10/18/19 24 025 Discontin ued(*Judith ent states no longer taking) celecoxib (CELEBREX) 200 mg capsuleIndication s:Lumbar radiculopathy Take 1 Capsule (200 mg) by mouth two times daily with meals. 60 Capsule 2 11/01/19 24 025 Discontin ued(*Judith ent states no longer taking) Active Problems Problem Noted Date Diagnosed Date Anxiety 05/03/2020 Hypertension GERD (gastroesophageal reflux disease) Resolved Problems Problem Noted Date Diagnosed Date Resolved Date Strain of left supraspinatus muscle 05/08/2021 07/16/2021 Encounters Date Type Department Care Team Description 07/12/2024 9:10 AM CDT Office Visit [facility] [address] [place] [address] Consuelo Paez DO Physical (39 year old, fasting for labs) 07/12/2024 Travel 06/30/2024 10:40 AM CDT Office Visit [facility] at [address] [address] Jerry Dumont MD Procedure (L4-5 ILESI) 06/30/2024 Orders Only [facility] Scanner 1 scan: (1-Ord) STATELINE, L4-5 INTERLAMINAR EPIDURAL STEROID INJ, 06/30/2024 06/29/2024 Telephone [facility] [address] [facility] [place] [address] Jerry Dumont MD Results (CT scan) 06/28/2024 8:30 AM CDT Ancillary Procedure [facility] [address] [place] [address] 06/27/2024 Travel 06/22/2024 Telephone [facility] [address] [place] [address] Jerry Dumont MD Imaging 06/19/2024 12:30 PM HEATER OPERATOR HELPER Ancillary Procedure [facility] [address] [place] [address] 06/19/2024 11:55 AM HEATER OPERATOR HELPER Office Visit [facility] [address] [place] [address] Kinjal Macario PA Chest Pain 06/19/2024 Orders Only [facility] [address] [place] [address] Kinjal Macario PA 1 scan: (1-Ord) NFLD-EKG-06/19/2024 06/19/2024 Travel from Last 3 Months Immunizations Immunization Administration Dates Next Due DTaP 05/29/2005 Family History Medical History Relation Name Comments Congenital heart disease Father Heart attack Father Diabetes type II Mother currently o ff medication Relation Name Status Comments Father Mother Sister Alive Social History Tobacco Use Types Packs/Day Years Used Date Smoking Tobacco: Former Cigarettes 0.3 15 2 2017 Smokeless Tobacco: Current Chew Tobacco Cessation:Ready to Q uit: Not Asked; Counseling Given: Not Answered Comments:zyn pouches Alcohol Use Standard Drinks/Week Comments No 0 (1 standard drink = 0.6 oz pur e alcohol) sober since 2016 PHQ-2 Answer Date Recorded PHQ-2 TOTAL SCORE 0 07/12/2024 Social Connections Answer Date Recorded Do you often feel lonely or isolated from those around you? 0 07/12/2024 Financial Resource Strain Answer Date R ecorded Difficulty of Paying Living Expenses 3 06/19/2024 Difficulty of Paying Living Expenses Not on file 06/19/2024 Food Insecurity Answer Date Recorded Do you worry your food will run out before you are able to buy more? 1 07/12/2024 Transportation Needs Answer Date Record ed Does lack of transportation keep you from medica l appointments? 1 07/12/2024 Does lack of transportation keep you from work, meetings or getting things that you need? 1 07/12/2024 Housing Stability Answer Date Recorded What is your housing situation today? 1 07/12/2024 Utilities Answer Date Recorded Do you have trouble paying f or utilities (for example, heat, electricity, water, phone)? 1 07/12/2024 Sex and Gender Information Value Date Recorded Sex Assigned at Not on file Legal Sex Male 7:06 AM HEATER OPERATOR HELPER Gender Identity Not on file Sexual Orientation Not on file Occupation Industry Job Start Date Job End Date Not on file Not on file Not on file Not on file Obstetrics History Last Filed Vital Signs Vital Sign Reading Time Taken Comments Blood Pressure 138/89 07/12/2024 9:10 AM CDT Pulse 65 07/12/2024 9:10 AM CDT Temperature 36.4 C (97.6 F) 11/01/2023 2:07 PM CDT Respiratory Rate 18 08/12/2021 8:00 PM CDT Oxygen Saturation 96% 06/19/2024 10: 59 AM HEATER OPERATOR HELPER Inhaled Oxygen Concentration - - Weight 125.6 kg (276 lb 12.8 oz) 07/12/2024 9:10 AM CDT Height 193 cm (6' 3.98) 07/12/2024 9:10 AM CDT Body Mass Index 33.71 07/12/2024 9:10 AM CDT Plan of Treatment Upcoming Encounters Date Type Department Care Team (Late st Contact Info) Description 08/23/2024 1:40 PM CDT Office Visit [facility] [address] [place] [address] Jerry Dumont MD [address] [place] [address] Health Maintenance Due Date Last Done Comments Tdap 1994 HIV for age 15-65 1998 Hepatitis C screening for age 18-79 2001 Tetanus booster 2003 COVID-19 vaccine series ( season) 2023 Influenza Vaccine (Season Ended) 2024 BMI (ht and wt on same day) for age 18+ 07/12/2025 07/12/2024, 05/06/2023, 07/31/2021, Additional history exists Depression screening for age 12+ 07/12/2025 07/12/2024, 06/18/2021, 05/06/2020, Additional history exists Lipids for age 35-44 07/12/2029 07/12/2024, 05/14/19 24 Pneumococcal series for age 6-49 Aged Out No longer eligible based on patient's age to complete this topic Procedures Procedure Name Priority Date/Time Associated Diagnosis Comments LIPID PANEL W REFLEX MEASURED LDL Routine 07/12/2024 9:42 AM CDT Encounter for screening for lipoid disorders CBC W PLT NO DIFF Routine 07/12/2024 9:4 2 AM CDT Routine medical exam BASIC METABOLIC PANEL Routine 07/12/2024 9:42 AM CDT Routine medical exam Hypertension AMB EPIDURAL STEROID INJECTION Routine 06/30/2024 8:20 AM CDT Spinal stenosis of lumbar region without neurogenic claudication Lesion of bone of lumbosacral spine SCAN-OPERATIVE/PROC EDURE REPORT 06/30/2024 12:[address] SPINE LUMBAR WO Routine 06/28/2024 8: 36 AM CDT Spinal stenosis of lumbar region without neurogenic claudication Lesion of bone of lumbosacral spine MT READING EKG - NO CHARGE, COMP ONLY Routine 06/19/2024 4:30 PM HEATER OPERATOR HELPER Chest pain in adult EKG 12 LEAD Routine 06/19/2024 4:30 PM HEATER OPERATOR HELPER Chest pain in adult XR CHEST 2 VIEWS PA AND LATERAL RUBEN 06/19/2024 11:51 AM HEATER OPERATOR HELPER Chest pain in adult from Last 3 Months Results * (ABNORMAL) LIPID PANEL W REFLEX MEASURED LDL [[id number]} (07/12/2024 9:42 AM CDT) CHOLESTEROL, TOTAL 190 <200 mg/dL [facility] HDL CHOLESTEROL 28(L) > OR = 40 mg/dL [facility] TRIGLYCERIDES 199(H) <150 mg/dL [facility] LDL-CHOLESTEROL 128(H) mg/dL (calc) [facility] Comment: Reference range: <100 Desirable range <100 mg/dL for primary prevention; <70 mg/dL for patients with CHD or diabetic patients with > or = 2 CHD risk factors. LDL-C is now calculated using the Wilber calculation, which is a validated novel method providing better accuracy than the Friedewald equation in the estimation of LDL-C. Paulo ORTIZ et al. SOLITARIO. 2013;310(19): 7564-4995 (http://education.Project WBS.Media Lantern/faq/UCH684) CHOL/HDLC RATIO 6.8(H) <5.0 (calc) [facility] NON HDL CHOLESTEROL 162(H) <130 mg/dL (calc) [facility] Comment: For patients with diabetes plus 1 major ASCVD risk factor, treating to a non-HDL-C goal of <100 mg/dL (LDL-C of <70 mg/dL) is considered a therapeutic option. Blood BLOOD SPECIMEN / Unknown 07/12/2024 9:42 AM CDT 07/12/2024 9:42 AM CDT us Consuelo Paez DO CHEMISTRY Final Resu lt [facility] [address] [place] [address], [facility] [address] [place] [address] * CBC W PLT NO DIFF (07/12/2024 9:42 AM CDT) Pathologist [facility] WHITE BLOOD CELL COUNT 7.8 3.8 - 10.8 Thousand/u L [facility] RED BLOOD CELL COUNT 5.37 4.20 - 5.80 Million/uL [facility] HEMOGLOBIN 15.9 13.2 - 17.1 g/dL [facility] HEMATOCRIT 47.5 38.5 - 50.0 % [facility] MCV 88.5 80.0 - 100.0 fL [facility] MCH 29.6 27.0 - 33.0 pg [facility] MCHC 33.5 32.0 - 36.0 g/dL [facility] Comment: For adults, a slight decrease in the calculated MCHC value (in the range of 30 to 32 g/dL) is most likely not clinically significant; however, it should be interpreted with caution in correlation with other red cell parameters and the patient's clinical condition. RDW 13.3 11.0 - 15.0 % [facility] PLATELET COUNT 168 140 - 400 Thousand/u L [facility] MPV 11.0 7.5 - 12.5 fL [facility] Blood BLOOD SPECIMEN / Unknown 07/12/2024 9:42 AM CDT 07/12/2024 9:42 AM CDT us Consuelo Paez DO HEMATOLOGY Final Resu lt [facility] [address] [place] [address], [facility] [address] [place] [address] * (ABNORMAL) BASIC METABOLIC PANEL (07/12/2024 9:42 AM CDT) [facility] GLUCOSE 109(H) 65 - 99 mg/dL [facility] Comment: Fasting reference interval For someone without known diabetes, a glucose value between 100 and 125 mg/dL is consistent with prediabetes and should be confirmed with a follow-up test. UREA NITROGEN (BUN) 18 7 - 25 mg/dL [facility] CREATININE 1.00 0.60 - 1.29 mg/dL [facility] EGFR 97 > OR = 60 mL/min/1. 73m2 [facility] BUN/CREATININE RATIO SEE NOTE: 6 - 22 (calc) [facility] Comment: Not Reported: BUN and Creatinine are within reference range. SODIUM 137 135 - 146 mmol/L [facility] POTASSIUM 4.0 3.5 - 5.3 mmol/L [facility] CHLORIDE 101 98 - 110 mmol/L [facility] CARBON DIOXIDE 26 20 - 32 mmol/L [facility] ELECTROLYTE BALANCE 10 7 - 17 mmol/L (calc) [facility] CALCIUM 10.0 8.6 - 10.3 mg/dL [facility] Blood BLOOD SPECIMEN / Unknown 07/12/2024 9:42 AM CDT 07/12/2024 9:42 AM CDT us Consuelo Lucero Jeannine DO CHEMISTRY Final Resu lt [facility] [address] [place] [address], [facility] [address] [place] [address] * SCAN-OPERATIVE/PROCEDURE REPORT (06/30/2024 12:00 AM CDT) us Scanner OTHER Final Result * CT SPINE LUMBAR WO (06/28/2024 8:36 AM CDT) Anatomical Region Laterality Modality LUMBAR SPINE, Spine, Spine Compu stevie Tomography 06/28/2024 1:58 PM CDT Addenda Addendum by Rai Mcfadden MD on 06/28/2024 2:02 PM CDT For Patients: As a result of the Cures Act, medical imaging exams and procedure reports are released immediately into your electronic medical record. You may view this report before your referring provider. If you have questions, please contact your health care provider. At L2 and L3 vertebral body within the anterior aspect corresponding to MRI evident T1 hypointense signal abnormality, coarse trabeculation is identified, which can be seen with vertebral body hemangioma. No concerning or lytic bony lesion is identified. Please note that all CT scans at this facility use dose modulation, iterative reconstruction, and/or weight-based dosing when appropriate to reduce radiation dose to as low as reasonably achievable. Dictated by Rai Mcfadden MD @ Jun 28 2024 2:02PM (Electronically Signed) [email or web address] 06/28/2024 1:58 PM CDT No significant interval change in the multilevel degenerative changes, most pronounced at L3-4 and L4-5 levels. Please note that all CT scans at this facility use dose modulation, iterative reconstruction, and/or weight-based dosing when appropriate to reduce radiation dose to as low as reasonably achievable. Dictated by Rai Mcfadden MD @ 06/28/2024 1:58:36 PM (Electronically Signed) Narrative 06/28/2024 1:58 PM CDT For Patients: As a result of the Cures Act, medical imaging exams and procedure reports are released immediately into your electronic medical record. You may view this report before your referring provider. If you have questions, please contact your health care provider. INDICATION: Spinal stenosis without neurogenic claudication. TECHNIQUE: CT lumbar spine without contrast. COMPARISON: MRI lumbar spine October 2023. FINDINGS: Lumbar vertebral body height and alignment is maintained. Intervertebral disc heights are preserved. Multilevel Schmorl`s nodes and anterior osteophytes are seen. Degenerative changes of bilateral SI joints are seen. No significant change in the multilevel degenerative changes as compared to previous MRI from October 2023 and are as described below. T12-L1: No spinal canal or neural foraminal stenosis. L1-2: No significant spinal canal or neural foraminal stenosis. Bilateral facet arthropathy. L2-3: Minimal disc bulge and bilateral facet arthropathy without significant spinal canal or neural foramina stenosis. L3-4: Diffuse disc bulge, moderate bilateral facet arthropathy as well as thickening of ligamentum flavum causing mild bilateral neural foraminal narrowing and mild spinal canal stenosis. Right subarticular recess stenosis. L4-5: Diffuse disc bulge with moderate bilateral facet arthropathy and infolding of ligamentum flavum causing moderate spinal canal stenosis and mild right neural foraminal stenosis. No significant left neural foraminal narrowing. L5-S1: Central disc herniation is present. No significant spinal canal or neural foraminal stenosis. No acute abnormality of the included abdomen. Procedure Note Rai Mcfadden MD - 06/28/2024 For Patients: As a result of the Cures Act, medical imagingexams and procedure reports are released immediately into your electronicmedical record. You may view this report before your referring provider.If you have questions, please contact your health care provider. INDICATION: Spinal stenosis without neurogenic claudication. TECHNIQUE: CT lumbar spine without contrast. COMPARISON: MRI lumbar spine October 2023. FINDINGS: Lumbar vertebral body height and alignment is maintained. Intervertebraldisc heights are preserved. Multilevel Schmorl`s nodes and anteriorosteophytes are seen. Degenerative changes of bilateral SI joints areseen. No significant change in the multilevel degenerative changes as comparedto previous MRI from October 2023 and are as described below. T12-L1: No spinal canal or neural foraminal stenosis. L1-2: No significant spinal canal or neural foraminal stenosis. Bilateralfacet arthropathy. L2-3: Minimal disc bulge and bilateral facet arthropathy withoutsignificant spinal canal or neural foramina stenosis. L3-4: Diffuse disc bulge, moderate bilateral facet arthropathy as well asthickening of ligamentum flavum causing mild bilateral neural foraminalnarrowing and mild spinal canal stenosis. Right subarticular recessstenosis. L4-5: Diffuse disc bulge with moderate bilateral facet arthropathy andinfolding of ligamentum flavum causing moderate spinal canal stenosis andmild right neural foraminal stenosis. No significant left neural foraminalnarrowing. L5-S1: Central disc herniation is present. No significant spinal canal orneural foraminal stenosis. No acute abnormality of the included abdomen. IMPRESSION: No significant interval change in the multilevel degenerative changes,most pronounced at L3-4 and L4-5 levels. Please note that all CT scans at this facility use dose modulation,iterative reconstruction, and/or weight-based dosing when appropriate toreduce radiation dose to as low as reasonably achievable. Dictated by Rai Mcfadden MD @ 06/28/2024 1:58:36 PM (Electronically Signed) us Jerry Dumont MD CT Edited Res ult - Final * EKG 12 LEAD (06/19/2024 4:30 PM HEATER OPERATOR HELPER) us Kinjal NICOLE EKG ORD Final Result * MT READING EKG - NO CHARGE, COMP ONLY (06/19/2024 4:30 PM HEATER OPERATOR HELPER) us Kinjal NICOLE PB - PROVIDER READINGS Final Result * XR CHEST 2 VIEWS PA AND LATERAL (06/19/2024 11:51 AM HEATER OPERATOR HELPER) Anatomical Region Laterality Modality CHEST, THORAX, Lung, HEART Compu stevie Radiography 06/19/2024 1:29 PM HEATER OPERATOR HELPER Impressions 06/19/2024 1:29 PM HEATER OPERATOR HELPER Negative chest. Dictated by Aniyah Bird MD @ 06/19/2024 1:29:40 PM (Electronically Signed) Narrative 06/19/2024 1:29 PM HEATER OPERATOR HELPER For Patients: As a result of the Cures Act, medical imaging exams and procedure reports are released immediately into your electronic medical record. You may view this report before your referring provider. If you have questions, please contact your health care provider. INDICATION: Chest pain TECHNIQUE: Two view chest. FINDINGS: The lungs are clear. The heart, mediastinum and pulmonary vessels are of normal size. There is no evidence of pleural disease. Procedure Note Aniyah Bird MD - 06/19/2024 For Patients: As a result of the Cures Act, medical imagingexams and procedure reports are released immediately into your electronicmedical record. You may view this report before your referring provider.If you have questions, please contact your health care provider. INDICATION: Chest pain TECHNIQUE: Two view chest. FINDINGS: The lungs are clear. The heart, mediastinum and pulmonary vessels are ofnormal size. There is no evidence of pleural disease. IMPRESSION: Negative chest. Dictated by Aniyah Bird MD @ 06/19/2024 1:29:40 PM (Electronically Signed) Kinjal NICOLE GENERAL IMAGING Final Result from Last 3 Months Insurance [facility] COMP Advance Directives * Full Code (Latest Code Status on File) Date Activated Date Inactivated Comments 08/12/2021 3:38 PM 08/12/2021 10:15 PM Question Answer Comments Code Status Discussion: Reviewed Preferences Care Teams Casino Supervisor Relationship Specialty Start Date End Date Pcp, No . PCP - General 10/18/23
--- OUTSIDE RECORDS SUMMARY | 2024-07-18 08:24 | XMS_ITS | Encounter Summary ---
Author Organization [facility] Address [address] [place] [address]. [place] [address] Care Team Providers Care Interpreter For The Deaf Name Role Phone Sohail Milton MD Unavailable [phone] [facility] Primary [facility] Pr ovider Unavailable Crow Leija MD Unavailable [phone] Reason for Visit * Reason Onset Date Comments *-*INCOMING RECORDS*-* 05/19/2021 Encounter Details Date Type Department Care Team (Late st Contact Info) Description 05/19/2021 PRE VISIT [facility] [address] [place] [address] Crow Leija MD [address] [place] [address] *-*INCOMING RECORDS*-* Social History Tobacco Use Types Packs/Day Years Used Date Smoking Tobacco: Every Day PHQ-2 Answer Date Recorded PHQ-2 Score 0 05/19/2021 Sex and Gender Information Value Date Recorded Sex Assigned at Not on file Legal Sex Male 4:14 AM ORTHOPHOTOGRAPHY TECHNICIAN Gender Identity Not on file Sexual Orientation Not on file COVID-19 Exposure Response Date Recorded In the last month, have you been in contact with someone who was confirmed or suspected to have Coronavirus / COVID-19? No / Unsure 05/19/2021 7:46 AM ORTHOPHOTOGRAPHY TECHNICIAN documented as of this encounter Miscellaneous Notes [...] PM FAXED REQUEST TO ANA Hernandez CMA OPHOTOGRAPHY TECHNICIAN OPHOTOGRAPHY TECHNICIAN documented in this encounter Plan of Treatment Not on file documented as of this encounter Visit Diagnoses Not on filedocumented in this encounter Care Teams Interpreter For The Deaf Relationship Specialty Start Date End Date Clinic, [facility] PCP - General 05/19/21 07/24/22 Sohail Milton MD Orthopaedic Surgery 05/13/21 Crow Leija MD [address] [place] [id number] Assigned Musculoskeletal Provider 05/25/21 11/20/22 documented as of this encounter
--- OUTSIDE RECORDS SUMMARY | 2024-07-18 08:24 | XMS_ITS | Clinical Summary ---
Author Organization [facility] Address [address] [place] [address] Care Team Providers Care Stranding Supervisor Name Role Phone Sohail Milton MD Unavailable [phone] Allergies Active Allergy Reactions Criticality Noted Date Comments Citalopram Other (See Comments) 05/06/2020 Nausea, vomiting, shortness of breath, chest pain, others Medications omeprazole (PRILOSEC) [address] capsule TAKE [...] on file Legal Sex Male 4:14 AM LOAN TELLER Gender Identity Not on file Sexual Orientation Not on file Last Filed Vital Signs Vital Sign Reading Time Taken Comments Blood Pressure 149/90 05/23/2007 7:00 PM LOAN TELLER Pulse 108 05/23/2007 7:00 PM LOAN TELLER Temperature 37.7 C (99.9 F) 05/23/2007 7:00 PM LOAN TELLER Respiratory Rate - - Oxygen Saturation - - Inhaled Oxygen Concentration - - Weight 124.7 kg (275 lb) 05/19/2021 8:01 AM LOAN TELLER Height 193 cm (6' 4) 05/19/2021 8:01 AM LOAN TELLER Body Mass Index 33.47 05/19/2021 8:01 AM LOAN TELLER Plan of Treatment Not on file Insurance [place] Care Teams Stranding Supervisor Relationship Specialty Start Date End Date Sohail Milton MD Orthopaedic Surgery 05/13/21
[2024-07-18 08:33] VITALS: BP 163/97; PULSE 73; RESP 18; TEMP 36.6; O2SAT 98; BMI 32.3
--- NOTE | 2024-07-18 09:02 | CRLHL7_ITS ---
For Patients: As a result of the Century Cures Act, medical imaging exams and procedure reports are released immediately into your electronic medical record. You may view this report before your referring provider. If you have questions, please contact your health care provider. INDICATION: Chest pain COMPARISON: July 30, 2016 TECHNIQUE: PA and lateral views of the chest were acquired FINDINGS: TUBES AND LINES: None. HEART AND MEDIASTINUM: The heart size is normal. The mediastinal contour appears normal for patient age. LUNGS AND PLEURAL SPACES: The lungs appear normal.The pleural spaces are unremarkable. OSSEOUS STRUCTURES: Age-appropriate appearance. No acute focal finding. IMPRESSION: No evidence of active pulmonary disease. Dictated by Jag Benedict MD @ 07/18/2024 9:23:03 AM (Electronically Signed)
--- NOTE | 2024-07-18 09:04 | ED.CHESTPAIN ---
HPI - Chest Pain General Date Seen: 07/18/24 Chief Complaint: Chest Pain Stated Complaint: Sharp Chest Pains Time Seen by Provider: 07/18/24 08:28 Source: patient Mode of arrival: ambulatory Limitations: no limitations History of Present Illness HPI narrative: Patient is a 39-year-old male presenting to the emergency department for chest pain. He states the pain happened about 30 minutes prior to arrival and has since subsided. He states he was exercising when he suddenly felt the chest pain and felt like he was going to pass out. Describes this sharp pain that radiated up to his head. Did not radiate to his arms. States there is some mild pressure but was mostly sharp in nature. Pain came on suddenly and then after a short time went away suddenly. He states he has had these episodes several times before in the usually occur at rest but occasionally occur while exercising. Sometimes they happen multiple times a day number days he will have no episodes. He has been speaking to primary care provider and was told it is likely not heart related. He has not had any formal heart imaging or test. He denies associated shortness of breath with these occurrences. States he is asymptomatic at this time. Denies fevers, chills, history of blood clots, abdominal pain, dizziness. Is not currently on any medications. Related Data Home Medications ?Medication ?Instructions ?Recorded ?Confirmed No Known Home Medications 04/27/22 07/18/24 Allergies Allergy/AdvReac Type Severity Reaction Status Date / Time Opioids - Morphine Analogues AdvReac Mild Verified 07/18/24 08:37 Review of Systems Status of ROS Reports: 10 or more systems reviewed and unremarkable except as noted in History and below [facility] Social History Smoking Status: Current every day smoker What tobacco products do you use: cigarettes Smoking packs per day: 0.5 Smoking cigarettes per day: 10.0 Do you use any of these nicotine containing products: None Second hand tobacco smoke exposure: No How often do you have a drink containing alcohol: monthly or less How many standard drinks containing alcohol do you have on a typical day: 1 or 2 How often do you have six or more drinks on one occasion: Never AUDIT-C Alcohol total score: 1 Non-prescribed substance use: denies use service: No Exam Narrative Exam Narrative: Const: Well-nourished, Well-developed, in no distress Eyes: PERRL, no conjunctival injection, and symmetrical lids HENT: Atraumatic external nose and ears. Moist mucous membranes. Neck: Symmetric, trachea midline, No thyromegaly. CVS: RRR, No murmurs or gallops. Peripheral pulses 2+ and equal in all extremities RESP: Unlabored respiratory effort. Clear to auscultation bilaterally. GI: Nontender/Nondistended, No rebound or guarding. MSK:Extremities w/o deformity, Normal Active ROM Skin: Warm, Dry. No rashes or lesions. Neuro: Normal Muscle tone, No focal neurological deficits. Psych: Awake, Alert, & Oriented x3. Appropriate mood and affect. Const Vital Signs, click to edit/add: Vital Signs - 24 hr 07/18/24 08:33 Temperature 98 F Pulse Rate [Right Pulse Oximeter] 73 Respiratory Rate 18 Blood Pressure [Right Upper Arm] 163/97 H Pulse Oximetry 98 Oxygen Delivery Method Room Air Course Vital Signs Vital signs: Initial Vital Signs Temperature 98 F 07/18/24 08:33 Temperature Source Temporal Artery Scan 07/18/24 08:33 Pulse Rate 73 07/18/24 08:33 Pulse Rhythm Regular 07/18/24 08:33 Pulse Strength 3+ Normal 07/18/24 08:33 Respiratory Rate 18 07/18/24 08:33 Blood Pressure 163/97 H 07/18/24 08:33 Blood Pressure Mean 119 H 07/18/24 08:33 Blood Pressure Position Semi-Fowlers 07/18/24 08:33 Pulse Oximetry 98 07/18/24 08:33 Oxygen Delivery Method Room Air 07/18/24 08:33 Vital Signs Temperature 98 F 07/18/24 08:33 Pulse Rate 73 07/18/24 08:33 Respiratory Rate 18 07/18/24 08:33 Blood Pressure 163/97 H 07/18/24 08:33 Pulse Oximetry 98 07/18/24 08:33 Oxygen Delivery Method Room Air 07/18/24 08:33 Temperature 98 F 07/18/24 08:33 Pulse Rate 73 07/18/24 08:33 Respiratory Rate 18 07/18/24 08:33 Blood Pressure 163/97 H 07/18/24 08:33 Pulse Oximetry 98 07/18/24 08:33 Oxygen Delivery Method Room Air 07/18/24 08:33 MDM - Chest Pain MDM Narrative Medical decision making narrative: Patient is a 39-year-old male presenting for chest pain. The differential diagnosis of chest pain is broad and includes common etiologies such as musculoskeletal strain, GERD, pneumonia, etc. More serious etiologies considered include PE, coronary artery disease, pneumothorax, aortic dissection, aortic aneurysm. He appears hemodynamically stable aortic dissection aortic aneurysm seems unlikely. Will do chest x-ray to presents pneumonia or pneumothorax. He is not tender to palpation a musculoskeletal strain seems less likely. Will order troponins and EKG to look for signs of ACS. He is PERC negative and PE can not be ruled out. With the description of symptoms again immediately to prior C but considering frequency I do want to rule out all other issues. Lab work shows no concerning abnormalities. EKG shows no concerning findings. Repeat troponin also within normal limits. Chest x-ray reviewed myself the radiologist shows no concerning findings. He has had no further symptoms here in the emergency department. I cannot say for certain was causing his chest pain at this time by do not believe there is any emergent issues. I do believe is reasonable to schedule a treadmill stress echo test to better rule out any cardiac involvement. He is agreeable to this plan. Lab Data Labs: Lab Results 07/18/24 07/18/24 07/18/24 Range/Units 09:02 09:21 11:20 WBC 6.96 (4.50-11.00) K/uL RBC 5.51 (4.30-5.90) m/uL Hgb 16.3 (13.5-17.5) gm/dL Hct 47.7 (37.0-53.0) % MCV 87 (80-100) fL MCH 30 (26-34) pg MCHC 34 (32-36) gm/dL RDW Coeff of Syed 13.0 (11.5-15.5) % Plt Count 180 (140-440) K/uL Neut % (Auto) 65.1 (42.0-72.0) % Lymph % (Auto) 27.0 (20-44) % [place] % (Auto) 6.8 (0.0-11.0) % Eos % (Auto) 0.7 (0.0-7.0) % Baso % (Auto) 0.3 (0.0-3.0) % Neut # (Auto) 4.53 (1.7-7.0) K/uL Lymph # (Auto) 1.88 (0.90-2.90) K/uL [place] # (Auto) 0.50 (0.00-0.90) K/UL Eos # (Auto) 0.05 (0.00-0.50) K/uL Baso # (Auto) 0.02 (0.00-0.30) K/uL Abs Immat Gran (auto) 0.01 (0.00-0.30) K/uL Imm/Tot Granulo (auto) 0.1 % Sodium 139 (135-149) mmol/L Potassium 4.4 (3.6-5.1) mmol/L Chloride 102 (96-114) mmol/L Carbon Dioxide 25 (20-32) mmol/L Anion Gap 12 (7-15) mEq/L BUN 17 (5-24) mg/dL Creatinine 1.1 (0.5-1.5) mg/dL Estimated Creat Clear 108.50 Estimated GFR 86 ml/min Glucose 104 (60-115) mg/dL Calcium 10.2 (8.4-10.6) mg/dL Magnesium 2.3 (1.5-2.6) mg/dL Troponin I < 0.01 < 0.01 (0.01-0.04) ng/mL SARS-CoV-2 (PCR) Negative SARS-CoV-2 (Negative) Influenza Type A (PCR) Negative PCR FLU A (Negative) Influenza Type B (PCR) Negative PCR FLU B (Negative) RSV (PCR) Negative PCR RSV (Negative) POC Troponin I 0.00 L (0.01-0.04) ng/ml Imaging Data Chest x-ray: Attestation: I have reviewed the pertinent imaging results. Radiologist's impression: No evidence of active pulmonary disease. Dictated by Jag Benedict MD @ 07/18/2024 9:23:03 AM ECG Data Attestation: I personally reviewed and interpreted this ECG as follows: Prior ECG tracings: available for review Interpretation: Normal sinus rhythm with a rate of 69 beats per minute, normal intervals, normal axis, ST or T-wave. Appears similar previous file. Discharge Plan Discharge Clinical Impression: Atypical chest pain Patient Disposition: Home, Self-Care Condition: Stable Instructions: Chest Pain (DC) Additional Instructions: Your stress test is scheduled on 07/20 with a 2:45pm arrival time. Please enter through the front entrance of the [facility]. If you have any questions, please call [phone]. Return to emergency department for new or worsening symptoms. Prescriptions: No Action No Known Home Medications Follow Up/Referrals: Consuelo Paez DO [Primary Care Provider] - Stand Alone Forms: [employer] Info Instructions
[2024-07-18 09:35] LABS: Basophils Absolute Auto 0.02 K/uL (0.00-0.30); Basophils Percent Auto 0.3 % (0.0-3.0); Eosinophils Absolute Auto 0.05 K/uL (0.00-0.50); Eosinophils Percent Auto 0.7 % (0.0-7.0); Hematocrit 47.7 % (37.0-53.0); Hemoglobin* 16.3 gm/dL (13.5-17.5); Immature Granulocytes Abs Auto 0.01 K/uL (0.00-0.30); Immature Granulocytes Pct Auto 0.1 %; Lymphocytes Absolute Auto 1.88 K/uL (0.90-2.90); Mean Corpuscular HGB Conc 34 gm/dL (32-36); Mean Corpuscular Hemoglobin 30 pg (26-34); Mean Corpuscular Volume 87 fL (80-100); Monocytes Percent Auto 6.8 % (0.0-11.0); Neutrophils Absolute Auto 4.53 K/uL (1.7-7.0); Neutrophils Percent Auto 65.1 % (42.0-72.0); Platelet Count* 180 K/uL (140-440); Red Blood Count 5.51 m/uL (4.30-5.90); White Blood Count* 6.96 K/uL (4.50-11.00)
--- OUTSIDE RECORDS SUMMARY | 2024-07-18 09:38 | XMS_ITS | Encounter Summary ---
Author Organization [place] Address [address] [place] [address]. [place] [address] Care Team Providers Care Wood Floor Refinisher Name Role Phone Sohail Milton MD Unavailable [phone] [facility], [facility] Primary Care Pr ovider Unavailable Crow Leija MD Unavailable [phone] Reason for Visit * Reason Onset Date Comments *-*INCOMING RECORDS*-* 05/19/2021 Encounter Details Date Type Department Care Team (Late st Contact Info) Description 05/19/2021 PRE VISIT [facility] [address] [place] [address] Crow Leija MD [address] [place] [address] *-*INCOMING RECORDS*-* Social History Tobacco Use Types Packs/Day Years Used Date Smoking Tobacco: Every Day PHQ-2 Answer Date Recorded PHQ-2 Score 0 05/19/2021 Sex and Gender Information Value Date Recorded Sex Assigned at Not on file Legal Sex Male 4:14 AM UROLOGIST Gender Identity Not on file Sexual Orientation Not on file COVID-19 Exposure Response Date Recorded In the last month, have you been in contact with someone who was confirmed or suspected to have Coronavirus / COVID-19? No / Unsure 05/19/2021 7:46 AM UROLOGIST documented as of this encounter Miscellaneous Notes [...] PM FAXED REQUEST TO ANA Hernandez CMA OGIST OGIST documented in this encounter Plan of Treatment Not on file documented as of this encounter Visit Diagnoses Not on filedocumented in this encounter Care Teams Wood Floor Refinisher Relationship Specialty Start Date End Date Clinic, [facility] PCP - General 05/19/21 07/24/22 Sohail Milton MD Orthopaedic Surgery 05/13/21 Crow Leija MD [address] [place] [id number] Assigned Musculoskeletal Provider 05/25/21 11/20/22 documented as of this encounter
--- OUTSIDE RECORDS SUMMARY | 2024-07-18 09:38 | XMS_ITS | Clinical Summary ---
Author Organization [facility] Address [address] [place] [id number] Care Team Providers Care Oxidation Engineer Name Role Phone Pcp, No Primary Care [...] Description 07/12/2024 9:10 AM CDT Office Visit [facility] [address] [place] [address] Consuelo Paez DO Physical (39 year old, fasting for labs) 07/12/2024 Travel 06/30/2024 10:40 AM CDT Office Visit [facility] at [address] [address] Jerry Dumont MD Procedure (L4-5 ILESI) 06/30/2024 Orders Only [facility] Scanner 1 scan: (1-Ord) [place], L4-5 INTERLAMINAR EPIDURAL STEROID INJ, 06/30/2024 06/29/2024 Telephone [facility] [address] [place] [address] Jerry Dumont MD Results (CT scan) 06/28/2024 8:30 AM CDT Ancillary Procedure [facility] [address] [place] [address] 06/27/2024 Travel 06/22/2024 Telephone [facility] [address] [place] [address] Jerry Dumont MD Imaging 06/19/2024 12:30 PM RIVET DRIVER Ancillary Procedure [facility] [address] [place] [address] 06/19/2024 11:55 AM RIVET DRIVER Office Visit [facility] [address] [place] [address] Kinjal Macario PA Chest Pain 06/19/2024 Orders Only [facility] [address] [place] [address] Kinjal Macario PA 1 scan: (1-Ord) NFLD-EKG-06/19/2024 [...] on file Legal Sex Male 7:06 AM RIVET DRIVER Gender Identity Not on file Sexual Orientation [...] Oxygen Saturation 96% 06/19/2024 10: 59 AM RIVET DRIVER Inhaled Oxygen Concentration - - Weight 125.6 kg (276 lb 12.8 oz) 07/12/2024 9:10 AM CDT Height 193 cm (6' 3.98) 07/12/2024 9:10 AM CDT Body Mass Index 33.71 07/12/2024 9:10 AM CDT Plan of Treatment Upcoming Encounters Date Type Department Care Team (Late st Contact Info) Description 08/23/2024 1:40 PM CDT Office Visit [facility] [address] [place] [address] Jerry Dumont MD [address] [place] [address] Health Maintenance Due Date Last Done Comments [...] claudication Lesion of bone of lumbosacral spine OR READING EKG - NO CHARGE, COMP ONLY Routine 06/19/2024 4:30 PM RIVET DRIVER Chest pain in adult EKG 12 LEAD Routine 06/19/2024 4:30 PM RIVET DRIVER Chest pain in adult XR CHEST 2 VIEWS PA AND LATERAL RUBEN 06/19/2024 11:51 AM RIVET DRIVER Chest pain in adult from Last 3 Months Results * (ABNORMAL) LIPID PANEL W REFLEX MEASURED LDL [FLP1819} (07/12/2024 9:42 AM CDT) CHOLESTEROL, TOTAL 190 [...] LDL-C. Paulo ORTIZ et al. SOLITARIO. 2013;310(19): 2167-1482 (http://education.Anevia.Synesis/faq/CMR768) CHOL/HDLC RATIO 6.8(H) <5.0 (calc) [facility] [...] Consuelo Paez DO CHEMISTRY Final Resu lt [email or web address] [facility] [address] [place] [address], [facility] [address] [place] [address] * CBC W PLT NO DIFF (07/12/2024 9:42 AM CDT) Pathologist [facility] WHITE BLOOD CELL COUNT 7.8 3.8 - 10.8 Thousand/u L [facility] RED BLOOD CELL COUNT 5.37 [...] Consuelo Paez DO HEMATOLOGY Final Resu lt [email or web address] [facility] [address] [place] [address], [facility] [address] [place] [address] * (ABNORMAL) BASIC METABOLIC PANEL (07/12/2024 9:42 AM CDT) [facility] GLUCOSE 109(H) 65 - 99 mg/dL [facility] [...] Lucero Jeannine DO CHEMISTRY Final Resu lt [email or web address] [facility] [address] [place] [address], [facility] [address] [place] [address] * SCAN-OPERATIVE/PROCEDURE REPORT (06/30/2024 12:00 AM CDT) [...] @ Jun 28 2024 2:02PM (Electronically Signed) [email or web address] Impressions 06/28/2024 1:58 PM CDT No significant [...] * EKG 12 LEAD (06/19/2024 4:30 PM RIVET DRIVER) us Kinjal NICOLE EKG ORD Final Result * OR READING EKG - NO CHARGE, COMP ONLY (06/19/2024 4:30 PM RIVET DRIVER) us Kinjal NICOLE PB - PROVIDER READINGS Final Result * XR CHEST 2 VIEWS PA AND LATERAL (06/19/2024 11:51 AM RIVET DRIVER) Anatomical Region Laterality Modality CHEST, THORAX, Lung, HEART Compu stevie Radiography 06/19/2024 1:29 PM RIVET DRIVER Impressions 06/19/2024 1:29 PM RIVET DRIVER Negative chest. Dictated by Aniyah Bird MD @ 06/19/2024 1:29:40 PM (Electronically Signed) Narrative 06/19/2024 1:29 PM RIVET DRIVER For Patients: As a result of the [...] Final Result from Last 3 Months Insurance [facility] COMP Advance Directives * Full Code (Latest Code Status on File) Date Activated Date Inactivated Comments 08/12/2021 3:38 PM 08/12/2021 10:15 PM Question Answer Comments Code Status Discussion: Reviewed Preferences Care Teams Oxidation Engineer Relationship Specialty Start Date End Date Pcp, No . PCP - General 10/18/23
--- OUTSIDE RECORDS SUMMARY | 2024-07-18 09:38 | XMS_ITS | Clinical Summary ---
Author Organization [place] Address [address] [facility] [place] [address] Care Team Providers Care Labor Utilization Superintendent Name Role Phone Sohail Milton MD Unavailable [phone] Allergies Active Allergy Reactions Criticality Noted Date [...] on file Legal Sex Male 4:14 AM ESCALATOR MECHANIC Gender Identity Not on file Sexual Orientation Not on file Last Filed Vital Signs Vital Sign Reading Time Taken Comments Blood Pressure 149/90 05/23/2007 7:00 PM ESCALATOR MECHANIC Pulse 108 05/23/2007 7:00 PM ESCALATOR MECHANIC Temperature 37.7 C (99.9 F) 05/23/2007 7:00 PM ESCALATOR MECHANIC Respiratory Rate - - Oxygen Saturation - - Inhaled Oxygen Concentration - - Weight 124.7 kg (275 lb) 05/19/2021 8:01 AM ESCALATOR MECHANIC Height 193 cm (6' 4) 05/19/2021 8:01 AM ESCALATOR MECHANIC Body Mass Index 33.47 05/19/2021 8:01 AM ESCALATOR MECHANIC Plan of Treatment Not on file Insurance [place] Care Teams Labor Utilization Superintendent Relationship Specialty Start Date End Date Sohail Milton MD Orthopaedic Surgery 05/13/21
[2024-07-18 09:46] LABS: Slide Review Reflex No
[2024-07-18 09:47] LABS: Chloride* 102 mmol/L (96-114); Sodium* 139 mmol/L (135-149)
[2024-07-18 09:48] LABS: Potassium* 4.4 mmol/L (3.6-5.1)
[2024-07-18 09:50] LABS: Anion Gap 12 mEq/L (7-15); Blood Urea Nitrogen* 17 mg/dL (5-24); Carbon Dioxide* 25 mmol/L (20-32); Creatinine* 1.1 mg/dL (0.5-1.5); Estimated Glomerular Filt Rate 86 ml/min
[2024-07-18 09:51] LABS: Calcium* 10.2 mg/dL (8.4-10.6); Glucose* 104 mg/dL (60-115); Magnesium* 2.3 mg/dL (1.5-2.6)
[2024-07-18 10:09] LABS: Troponin I* < 0.01 ng/mL (0.01-0.04)
[2024-07-18 10:12] LABS: PCR FLU A Negative PCR FLU A (Negative); PCR FLU B Negative PCR FLU B (Negative); PCR RSV Negative PCR RSV (Negative); SARS PCR* Negative SARS-CoV-2 (Negative)
[2024-07-18 12:14] LABS: Troponin I* < 0.01 ng/mL (0.01-0.04)
== END 2024-07-18 12:42 | disposition home or self-care (01) ==
PROVIDERS: Emergency Provider Student in an Organized Health Care Education/Training Program; PCP Family Medicine
DX: R07.9 Chest pain, unspecified (principal)
CPT/HCPCS: 36415; 71046; 80048; 83735; 84484; 85025; 85379; 87631; 93005; 99284

== ENCOUNTER 2024-07-20 14:41 | Outpatient (CLI) | payer BC, SELFPAY ==
[2024-07-20 15:51] VITALS: BP 154/91
--- NOTE | 2024-07-20 16:00 | W.PM.STED ---
Stress Test Note Providers Primary care provider: Consuelo Paez Stress test physician: Ronnie Vaughan Stress Test Note Stress test ordered: Stress Echo Indication for test: Chest pain Results discussion: This pleasant 39-year-old gentleman presents here for the above straight test after discussion the risks benefits side effects she would like to proceed, cardiac stress test medical history form is reviewed in detail. Pretest EKG shows normal sinus rhythm with a ventricular rate 80 and a blood pressure 133/92. Standard Robert protocol is employed over 10 minute. , achieved a metabolic equivalent of 11.5 Mets, with a maximum heart rate of 175, this is 115%, test is terminated because of fulfillment of protocol, patient did not develop any subjective symptoms suggestive of ischemia such as chest pain shortness of breath or pressure, review of the tracing did not show any evidence of ST wave depression, elevation, or dysrhythmias. Impression: Electrographic portion of stress echo, objectively and subjectively negative. Follow up suggested: Await Cardiology to read echo imaging, clinical correlation is be needed. Patient left this testing facility in good condition
== END 2024-07-20 14:42 | disposition home or self-care (01) ==
LOC: STRESS 14:41
PROVIDERS: PCP Family Medicine; Visit Provider Student in an Organized Health Care Education/Training Program
DX: R07.9 Chest pain, unspecified (principal)
CPT/HCPCS: 93016; 93325; 93351

== ENCOUNTER 2024-08-29 14:09 | Outpatient (CLI) | payer BC, SELFPAY | END 2024-08-29 14:10 | disposition home or self-care (01) | LOC: INJ CL 14:09 | PROVIDERS: PCP Family Medicine; Visit Provider Family Medicine | DX: M54.16 Radiculopathy, lumbar region (principal); M51.369 Other intervertebral disc degeneration, lumbar region without mention of lumbar back pain or lower extremity pain | CPT/HCPCS: 62323; J0702; Q9966 ==

== ENCOUNTER 2024-10-24 08:04 | Outpatient (CLI) | payer BC, SELFPAY | END 2024-10-24 08:05 | disposition home or self-care (01) | LOC: INJ CL 08:04 | PROVIDERS: PCP Family Medicine; Visit Provider Family Medicine | DX: M54.16 Radiculopathy, lumbar region (principal); M51.369 Other intervertebral disc degeneration, lumbar region without mention of lumbar back pain or lower extremity pain | CPT/HCPCS: 64483; J1100; Q9966 ==

== ENCOUNTER 2025-02-09 07:15 | Outpatient (CLI) | payer BC, SELFPAY | END 2025-02-09 07:16 | disposition home or self-care (01) | LOC: INJ CL 07:15 | PROVIDERS: PCP Family Medicine; Visit Provider Family Medicine | DX: M54.16 Radiculopathy, lumbar region (principal); M51.369 Other intervertebral disc degeneration, lumbar region without mention of lumbar back pain or lower extremity pain | CPT/HCPCS: 64483; J1100; Q9966 ==